=== PATIENT | male | born 1965 | race Caucasian/White ===

== ENCOUNTER 2021-01-16 16:25 | Emergency (ER) | payer MEDICARE, MEDICAID ==
[~2021-01-16] VITALS: Ht 170.2 cm; Wt 61.4 kg
[~2021-01-16 16:25] MED LIST: ASCO-134 PO; LISI-790 PO; PANT40TA54 PO
[2021-01-16 16:40] VITALS: BP 160/103
[2021-01-16] MEDS ORDERED: normal saline 1000ML IV soln IV ONE (16:45)
[2021-01-16 17:11] LABS: BASOPHILS % (AUTO) 0.4 % (0-1); EOSINOPHILS # (AUTO) 0.1 X10'3 (0-0.9); EOSINOPHILS % (AUTO) 1.1 % (0-6); HEMATOCRIT 46.9 % (42.0-52.0); HEMOGLOBIN 15.2 g/dl (14.0-17.9); LYMPHOCYTES # (AUTO) 2.1 X10'3 (1.1-4.8); LYMPHOCYTES % (AUTO) 21.1 % (21-51); MEAN CORPUSCULAR HEMOGLOBIN 23.8 PG (27.0-31.0); MEAN CORPUSCULAR HGB CONC 32.5 g/dL (33.0-36.5); MEAN CORPUSCULAR VOLUME 73.3 FL (78-98); MEAN PLATELET VOLUME 8.5 FL (7.4-10.4); MONOCYTES # (AUTO) 0.5 X10'3 (0-0.9); MONOCYTES % (AUTO) 4.7 % (2-12); NEUTROPHILS # (AUTO) 7.3 X10'3 (1.8-7.7); NEUTROPHILS % (AUTO) 72.7 % (42-75); PLATELET COUNT 367 X10'3 (140-440); RED BLOOD COUNT 6.39 X10'6 (4.70-6.10); RED CELL DISTRIBUTION WIDTH 20.8 % (11.5-14.5); WHITE BLOOD COUNT 10.1 X10'3 (4.5-11.0)
[2021-01-16 17:25] LABS: ALANINE AMINOTRANSFERASE 14 U/L (12-78); ALBUMIN 3.8 G/DL (3.4-5.0); ALBUMIN/GLOBULIN RATIO 0.8 (1.1-1.5); ALKALINE PHOSPHATASE 118 IU/L (46-116); ANION GAP 13 (8-16); ASPARTATE AMINO TRANSFERASE 14 U/L (10-37); BILIRUBIN,TOTAL 1.3 MG/DL (0.1-1.0); BLOOD UREA NITROGEN 19 MG/DL (7-18); BUN/CREATININE RATIO 15.4 (5.4-32.0); CALCIUM 9.2 MG/DL (8.5-10.1); CHLORIDE 100 MMOL/L (99-107); CREATININE 1.23 MG/DL (0.60-1.10); GLUCOSE 112 MG/DL (70-104); POTASSIUM 4.3 MMOL/L (3.5-5.1); SODIUM 137 MMOL/L (135-145); TOTAL CARBON DIOXIDE 24.5 MMOL/L (24-32); TOTAL PROTEIN 8.4 G/DL (6.4-8.2); eGFR 61 ML/MIN
[2021-01-17 00:34] LABS: ANISOCYTOSIS 3+; BURR CELLS FEW; MICROCYTOSIS 1+; PLATELET ESTIMATE NORMAL; TEAR DROP CELLS FEW
[2021-01-18] MEDS ORDERED: ONDA4TAB12 PO (23:08)
[2021-01-18] MEDS ORDERED: PANT40TA54 PO (23:08)
== END 2021-01-17 08:13 | disposition left against medical advice (07) ==
LOC: ER 16:25
DX: R10.32 Left lower quadrant pain (principal); K29.70 Gastritis, unspecified, without bleeding; K40.90 Unilateral inguinal hernia, without obstruction or gangrene, not specified as recurrent; I25.10 Atherosclerotic heart disease of native coronary artery without angina pectoris; Z86.19 Personal history of other infectious and parasitic diseases; Z90.89 Acquired absence of other organs; Z60.2 Problems related to living alone; Z56.0 Unemployment, unspecified; Z79.899 Other long term (current) drug therapy
CPT/HCPCS: 36415; 80053; 83605; 84145; 85008; 85025; 87040; 99283

== ENCOUNTER 2021-01-18 20:42 | Inpatient (IN) | payer MEDICARE, MEDICAID ==
[~2021-01-18] VITALS: Ht 170.2 cm; Wt 61.4 kg
[2021-01-18 22:11] LABS: BASOPHILS # (AUTO) 0.1 X10'3 (0-0.2); BASOPHILS % (AUTO) 0.5 % (0-1); EOSINOPHILS # (AUTO) 0.1 X10'3 (0-0.9); EOSINOPHILS % (AUTO) 0.4 % (0-6); HEMATOCRIT 47.2 % (42.0-52.0); HEMOGLOBIN 15.4 g/dl (14.0-17.9); LYMPHOCYTES # (AUTO) 1.4 X10'3 (1.1-4.8); LYMPHOCYTES % (AUTO) 9.9 % (21-51); MEAN CORPUSCULAR HEMOGLOBIN 23.9 PG (27.0-31.0); MEAN CORPUSCULAR HGB CONC 32.5 g/dL (33.0-36.5); MEAN CORPUSCULAR VOLUME 73.4 FL (78-98); MEAN PLATELET VOLUME 8.7 FL (7.4-10.4); MONOCYTES # (AUTO) 0.5 X10'3 (0-0.9); MONOCYTES % (AUTO) 3.9 % (2-12); NEUTROPHILS # (AUTO) 12.1 X10'3 (1.8-7.7); NEUTROPHILS % (AUTO) 85.3 % (42-75); PLATELET COUNT 424 X10'3 (140-440); RED BLOOD COUNT 6.44 X10'6 (4.70-6.10); WHITE BLOOD COUNT 14.2 X10'3 (4.5-11.0)
[2021-01-18 22:24] LABS: ALANINE AMINOTRANSFERASE 19 U/L (12-78); ALBUMIN 3.8 G/DL (3.4-5.0); ALBUMIN/GLOBULIN RATIO 0.8 (1.1-1.5); ALKALINE PHOSPHATASE 124 IU/L (46-116); ANION GAP 13 (8-16); ASPARTATE AMINO TRANSFERASE 19 U/L (10-37); BILIRUBIN,TOTAL 1.2 MG/DL (0.1-1.0); BLOOD UREA NITROGEN 23 MG/DL (7-18); BUN/CREATININE RATIO 16.9 (5.4-32.0); CALCIUM 9.6 MG/DL (8.5-10.1); CHLORIDE 96 MMOL/L (99-107); CREATININE 1.36 MG/DL (0.60-1.10); GLUCOSE 174 MG/DL (70-104); LIPASE 93 U/L (73-393); POTASSIUM 3.9 MMOL/L (3.5-5.1); SODIUM 139 MMOL/L (135-145); TOTAL CARBON DIOXIDE 29.7 MMOL/L (24-32); TOTAL PROTEIN 8.5 G/DL (6.4-8.2); eGFR 54 ML/MIN
[2021-01-18] MEDS ORDERED: ONDA4TAB12 PO (23:08)
[2021-01-18] MEDS ORDERED: PANT40TA54 PO (23:08)
[2021-01-18] MEDS ORDERED: ondansetron 4mg rapidly disintigrating tab PO ONE (23:10)
[2021-01-18] MEDS ORDERED: aspirin 81mg tab.chew PO ONE (23:25)
[2021-01-18 23:31] LABS: TROPONIN I < 0.04 NG/ML (0.0-0.05)
[2021-01-18] MEDS ORDERED: LIDOcaine 1% (10mg/ml)w/preservative injection 20ml MDV ONE (23:52)
[2021-01-18] MEDS ORDERED: heparin 1,000unit/ml 10ml vial 10 ML ONE (23:52)
[2021-01-18] MEDS ORDERED: fentaNYL/PF 50MCG/1 ML 2ML syringe ONE (23:52)
[2021-01-18] MEDS ORDERED: midazolam 1 mg/ML 2ml injection ONE (23:52)
[2021-01-18] MEDS ORDERED: iohexol 350MG/ML 100ml bottle IV ONE (23:52)
[2021-01-18] MEDS ORDERED: iohexol 350 MG/ML 50ML vial IV ONE (23:52)
[2021-01-18 23:59] LABS: ANISOCYTOSIS 2+; PLATELET ESTIMATE NORMAL; TOTAL CELLS COUNTED 100
[2021-01-19] LABS: LARGE PLATELETS FEW; MICROCYTOSIS 1+; TOXIC GRANULATION 1+; TOXIC VACUOLATION FEW
[2021-01-19] MEDS ORDERED: normal saline 1000ml 1,000 ML IV ONE (00:45)
[2021-01-19] MEDS ORDERED: diphenhydrAMINE 50 mg/ml inj IV STA (01:08)
[2021-01-19] MEDS ORDERED: pantoprazole 40 MG vial IV STA (01:08)
[2021-01-19] MEDS ORDERED: LORazepam 2 mg/ml vial IV PRN (01:10)
[2021-01-19] MEDS ORDERED: ondansetron/PF 4mg/2ml inj IV PRN ×2 (01:10→02:55)
[2021-01-19] MEDS ORDERED: HYDROcodone/acetaminophen 10/325mg tab PO PRN (02:55)
[2021-01-19] MEDS ORDERED: HYDROcodone/acetaminophen 5mg/325mg tablet PO PRN (02:55)
[2021-01-19] MEDS ORDERED: ondansetron 4mg rapidly disintigrating tab PO PRN (02:55)
[2021-01-19] MEDS ORDERED: magnesium hydroxide 30ml (MOM) UD suspension PO PRN (02:55)
[2021-01-19] MEDS ORDERED: acetaminophen 325mg tablet PO PRN ×2 (02:55)
[2021-01-19] MEDS: dextrose 5%-1/2 normal saline 1,000 ML IV SCH ×3 (02:55→23:15)
[2021-01-19] MEDS ORDERED: acetaminophen 650mg rectal suppository RC PRN (02:55)
[2021-01-19] MEDS ORDERED: diphenhydrAMINE 25mg capsule PO PRN (02:55)
[2021-01-19] MEDS ORDERED: bisacodyl 10mg suppository rectal RC PRN (02:55)
[2021-01-19] MEDS ORDERED: diphenhydrAMINE 50 mg/ml inj IV PRN (02:55)
[2021-01-19] MEDS ORDERED: mag hydrox/Alum hydrox/simeth 30ml oral suspension PO PRN (02:55)
[2021-01-19] MEDS ORDERED: morphine 2 MG/ML inj. syringe IV PRN ×2 (02:55)
[2021-01-19 03:23] LABS: HEMOGLOBIN A1C 6.3 % (4.5-6.2)
[2021-01-19 03:28] LABS: CREATINE KINASE 31 U/L (39-308); ETHANOL < 0.010 GM/DL (0.0-0.010); MAGNESIUM 2.8 MG/DL (1.5-2.4); PHOSPHORUS 5.1 MG/DL (2.3-4.5)
[2021-01-19] MEDS: aspirin 81mg, enteric-coated 1 TAB TABLET.DR PO SCH (08:41)
[2021-01-19] MEDS: atorvastatin 20mg tablet PO SCH (08:41)
[2021-01-19] MEDS: docusate sod 100mg capsule PO SCH ×2 (08:41→20:18)
[2021-01-19] MEDS: pantoprazole 40 MG vial IV SCH (08:41)
[2021-01-19] MEDS: carVEDilol 3.125mg tablet PO SCH ×2 (08:41→20:18)
[2021-01-19] MEDS: LORazepam 1 MG tablet PO SCH ×2 (08:41→16:00)
[2021-01-19] MEDS: nicotine 21mg patch - 24 hr TD SCH (08:43)
[2021-01-19] MEDS: heparin, porcine 5000 units/ml vial SQ SCH ×2 (08:43→20:19)
[2021-01-19] MEDS ORDERED: VITC500T PO (12:11)
[2021-01-19] MEDS ORDERED: LISI-790 PO (12:12)
[2021-01-19] MEDS ORDERED: ONDA4TAB12 PO (12:13)
[2021-01-19] MEDS ORDERED: PANT40TA54 PO (12:14)
[2021-01-19 12:50] LABS: D-DIMER 1.41 MG/L FEU (0-0.50); PARTIAL THROMBOPLASTIN TIME 28 SECONDS (22-32)
--- NOTE | 2021-01-19 12:52 | NUR ---
paged Dr. Lopez request for diet.
--- NOTE | 2021-01-19 13:19 | NUR ---
patient lethargic but arousable,opens eyes to voice,was able to collect urine via clean catch,denies discomfort,cardiac exercise specialist shows sinus rhythm 80bpm, BG checked 119mg/dl.We will monitor.
[2021-01-19] MEDS ORDERED: NO HOME MEDS (14:02)
[2021-01-19 14:05] LABS: CLARITY,URINE SLIGHTLY CLOUDY (Clear); COLOR,URINE YELLOW (Yellow); GLUCOSE, URINE NEGATIVE (Neg); KETONES,URINE NEGATIVE (Neg); LEUKOCYTE ESTERASE ,URINE NEGATIVE (Neg); NITRITES, URINE NEGATIVE (Neg); OCCULT BLOOD,URINE NEGATIVE (Neg); PH,URINE 6.5 (4.8-8.0); PROTEIN,URINE NEGATIVE (Neg); UA COLLECTION TYPE CLN CATCH MIDSTREAM; UROBILINOGEN,URINE 0.2 E.U/dL (0.2-1.0)
[2021-01-19 14:12] LABS: URINE AMPHETAMINE SCREEN POSITIVE (Neg); URINE BARBITUATE SCREEN NEGATIVE (Neg); URINE BENZODIAZEPINES SCREEN NEGATIVE (Neg); URINE CANNABINOID SCREEN POSITIVE (Neg); URINE COCAINE SCREEN NEGATIVE (Neg); URINE METHADONE SCREEN NEGATIVE (Neg); URINE OPIATE SCREEN POSITIVE (Neg); URINE PHENCYCLIDINE SCREEN NEGATIVE (Neg)
[2021-01-19 14:22] LABS: BACTERIA,URINE NONE SEEN /HPF (Neg); MUCUS STRANDS FEW /LPF (Neg); RBC,URINE 0-2 /HPF (0-2); SQUAMOUS EPITHELIAL CELL,UR NONE SEEN /LPF (FEW); WBC,URINE 0-4 /HPF (0-4)
[2021-01-19 14:23] LABS: HYALINE CASTS 0-3 /LPF (NEGATIVE)
--- NOTE | 2021-01-19 15:00 | NUR ---
Dr. Sams here to see patient. No new order.
--- NOTE | 2021-01-19 15:00 | NUR ---
Dr. Sams made aware that patient has been lethargic but arousable,no call from Dr. Lopez.
--- NOTE | 2021-01-19 15:00 | NUR ---
visitor at bedside,mentioned that the patient was able to talk to hospitalist Dr. Lopez when he was here.
--- NOTE | 2021-01-19 16:23 | NUR ---
HELD ATIVAN DOSE AT THIS TIME,PATIENT ASLEEP AND NOT NEEDING ATIVAN, HAS BEEN SLEEPING ALMOST ALL SHIFT.VISITOR AT BEDSIDE.
--- NOTE | 2021-01-19 17:48 | NUR ---
Spoke to Dr. Lopez made aware that patient has been lethargic today, arousable to verbal stimuli and mild sternum rub.made aware that 1600 ativan was dc'd.ordered to dc ativan.
[2021-01-19] MEDS ORDERED: temazepam 15mg capsule PO PRN (21:00)
--- NOTE | 2021-01-20 04:50 | NUR ---
REMOVED TELE MONITOR PER DR ORDER.
--- NOTE | 2021-01-20 05:20 | NUR ---
HR 63, SPO2 97 RA, BP 115/80, MT 16, TEMP 98.0, PAIN 0. NO SIGN OF DISTRESS OR DISCOMFORT NOTED.
--- NOTE | 2021-01-20 05:38 | NUR ---
PATIENT RECEIVED . VS STABLE. PATIENT ON RA. O2 SAT 95% . PATIENT EDUCATED ABOUT CALL LIGHT, ROOM AND SAFETY MEASURES. PATIENT VERBALIZES UNDERSTANDING. ALL SAFETY MEASURES IN PLACE. WILL CONTINUE MONITOR.
[2021-01-20 06:00] VITALS: BP 119/77
--- NOTE | 2021-01-20 06:26 | NUR ---
PATIENT STABLE. REPORT GIVEN TO DIANNA PIERCE.
--- NOTE | 2021-01-20 06:36 | NUR ---
Patient in room PCU 3013. I have received report from Lilly BUSTAMANTE and had the opportunity to ask questions and assume patient care.
[2021-01-20] MEDS: nicotine 21mg patch - 24 hr TD SCH (08:00)
[2021-01-20 08:30] LABS: BASOPHILS # (AUTO) 0.1 X10'3 (0-0.2); BASOPHILS % (AUTO) 0.8 % (0-1); EOSINOPHILS # (AUTO) 0.1 X10'3 (0-0.9); EOSINOPHILS % (AUTO) 1.3 % (0-6); HEMATOCRIT 39.2 % (42.0-52.0); HEMOGLOBIN 12.5 g/dl (14.0-17.9); LYMPHOCYTES # (AUTO) 2.2 X10'3 (1.1-4.8); LYMPHOCYTES % (AUTO) 23.2 % (21-51); MEAN CORPUSCULAR HGB CONC 31.9 g/dL (33.0-36.5); MEAN CORPUSCULAR VOLUME 75.2 FL (78-98); MEAN PLATELET VOLUME 9.3 FL (7.4-10.4); MONOCYTES # (AUTO) 0.5 X10'3 (0-0.9); MONOCYTES % (AUTO) 5.6 % (2-12); NEUTROPHILS # (AUTO) 6.6 X10'3 (1.8-7.7); NEUTROPHILS % (AUTO) 69.1 % (42-75); PLATELET COUNT 294 X10'3 (140-440); RED BLOOD COUNT 5.21 X10'6 (4.70-6.10); RED CELL DISTRIBUTION WIDTH 20.5 % (11.5-14.5); WHITE BLOOD COUNT 9.6 X10'3 (4.5-11.0)
[2021-01-20 08:49] LABS: ALANINE AMINOTRANSFERASE 16 U/L (12-78); ALBUMIN 2.9 G/DL (3.4-5.0); ALBUMIN/GLOBULIN RATIO 0.8 (1.1-1.5); ALKALINE PHOSPHATASE 98 IU/L (46-116); ANION GAP 7 (8-16); ASPARTATE AMINO TRANSFERASE 17 U/L (10-37); BILIRUBIN,TOTAL 0.9 MG/DL (0.1-1.0); BLOOD UREA NITROGEN 29 MG/DL (7-18); CALCIUM 8.6 MG/DL (8.5-10.1); CHLORIDE 101 MMOL/L (99-107); CHOL/HDL RATIO 2.9 (0.00-4.99); CHOLESTEROL 129 MG/DL (0-200); CREATININE 1.26 MG/DL (0.60-1.10); GLUCOSE 85 MG/DL (70-104); HDL CHOLESTEROL 44 MG/DL (35-60); LDL CHOLESTEROL 72 MG/DL (50-100); POTASSIUM 3.8 MMOL/L (3.5-5.1); SODIUM 138 MMOL/L (135-145); TOTAL CARBON DIOXIDE 30.2 MMOL/L (24-32); TOTAL PROTEIN 6.6 G/DL (6.4-8.2); TRIGLYCERIDES 77 MG/DL (20-135); eGFR 59 ML/MIN
[2021-01-20] MEDS: dextrose 5%-1/2 normal saline 1,000 ML IV SCH (08:55)
[2021-01-20] MEDS: pantoprazole 40 MG vial IV SCH (09:06)
[2021-01-20] MEDS: LORazepam 1 MG tablet PO SCH ×2 (09:10)
[2021-01-20] MEDS: docusate sod 100mg capsule PO SCH (09:10)
[2021-01-20] MEDS: carVEDilol 3.125mg tablet PO SCH (09:11)
[2021-01-20] MEDS: aspirin 81mg, enteric-coated 1 TAB TABLET.DR PO SCH (09:11)
[2021-01-20] MEDS: atorvastatin 20mg tablet PO SCH (09:11)
[2021-01-20] MEDS: heparin, porcine 5000 units/ml vial SQ SCH (09:12)
[2021-01-20] MEDS ORDERED: COR3.125T PO (10:38)
[2021-01-20] MEDS ORDERED: PANT-47 PO (10:38)
[2021-01-20] MEDS ORDERED: ASPI-1071 PO (10:38)
[2021-01-20] MEDS ORDERED: ATOR20TA66 PO (10:38)
[2021-01-20] MEDS ORDERED: NICO-687 TD (10:38)
[2021-01-20 11:11] LABS: HYPOCHROMASIA 1+; PLATELET ESTIMATE NORMAL
[2021-01-20 11:12] LABS: ANISOCYTOSIS 3+; MICROCYTOSIS 1+
--- NOTE | 2021-01-20 12:47 | NUR ---
Patient stable for discharge per Dr. Lopez. DC'd tele and DC'd right and left PIV's with cannulas intact. patient verbalized understanding of discharge instruction, the importance of follow up care, new medication regimen and stopping methamphetamine use. Patient and belongings were escorted to the lobby for transport home by family/friend.
== END 2021-01-20 12:23 | disposition home or self-care (01) | DRG 917 ==
LOC: ER 20:43 → ED HOLD 01-19 02:57 → PCU 3S 01-20 05:05
PROVIDERS: ADMIT Family Medicine; ATTEND Family Medicine
DX: T43.621A Poisoning by amphetamines, accidental (unintentional), initial encounter (principal); I50.23 Acute on chronic systolic (congestive) heart failure; I21.9 Acute myocardial infarction, unspecified; I16.1 Hypertensive emergency; F19.20 Other psychoactive substance dependence, uncomplicated; K22.10 Ulcer of esophagus without bleeding; N17.9 Acute kidney failure, unspecified; I42.7 Cardiomyopathy due to drug and external agent; I11.0 Hypertensive heart disease with heart failure; B18.2 Chronic viral hepatitis C; K40.90 Unilateral inguinal hernia, without obstruction or gangrene, not specified as recurrent; Z20.822 Contact with and (suspected) exposure to COVID-19; F15.129 Other stimulant abuse with intoxication, unspecified; F17.210 Nicotine dependence, cigarettes, uncomplicated; K21.9 Gastro-esophageal reflux disease without esophagitis; F41.1 Generalized anxiety disorder; I25.10 Atherosclerotic heart disease of native coronary artery without angina pectoris; I25.2 Old myocardial infarction; Z87.11 Personal history of peptic ulcer disease; Z90.49 Acquired absence of other specified parts of digestive tract; Z79.82 Long term (current) use of aspirin; Z56.0 Unemployment, unspecified; Z79.899 Other long term (current) drug therapy; Z71.51 Drug abuse counseling and surveillance of drug abuser; Z71.6 Tobacco abuse counseling; Y92.89 Other specified places as the place of occurrence of the external cause
CPT/HCPCS: 36415; 74176; 80053; 80061; 80305; 80320; 81001; 82550; 82948; 83036; 83605; 83690; 83735; 83880; 84100; 84145; 84484; 85007; 85008; 85025; 85379; 85610; 85730; 87040; 87081; 87635; 93005; 99283; 99291; C9113; C9803; G0378; J1200; J1644; J2001; J2250; J2405; J3010; J7030; Q9967

== ENCOUNTER 2021-05-05 16:50 | Emergency (ER) | payer MEDICARE, MEDICAID ==
[~2021-05-05] VITALS: Ht 170.2 cm; Wt 59.1 kg
[~2021-05-05 16:50] MED LIST changes: -ASCO-134 PO; +ASPI-1071 PO; +ATOR20TA66 PO; +COR3.125T PO; -LISI-790 PO; +NICO-687 TD; +PANT-47 PO; -PANT40TA54 PO
[2021-05-05 17:18] VITALS: BP 164/113
[2021-05-05 18:12] LABS: BASOPHILS # (AUTO) 0.1 X10'3 (0-0.2); BASOPHILS % (AUTO) 0.5 % (0-1); EOSINOPHILS % (AUTO) 0.2 % (0-6); HEMATOCRIT 42.3 % (42.0-52.0); HEMOGLOBIN 13.5 g/dl (14.0-17.9); LYMPHOCYTES # (AUTO) 1.8 X10'3 (1.1-4.8); LYMPHOCYTES % (AUTO) 11.8 % (21-51); MEAN CORPUSCULAR HEMOGLOBIN 22.1 PG (27.0-31.0); MEAN CORPUSCULAR VOLUME 69.2 FL (78-98); MONOCYTES # (AUTO) 0.7 X10'3 (0-0.9); MONOCYTES % (AUTO) 4.6 % (2-12); NEUTROPHILS # (AUTO) 12.3 X10'3 (1.8-7.7); NEUTROPHILS % (AUTO) 82.9 % (42-75); PLATELET COUNT 349 X10'3 (140-440); RED BLOOD COUNT 6.12 X10'6 (4.70-6.10); RED CELL DISTRIBUTION WIDTH 18.8 % (11.5-14.5); WHITE BLOOD COUNT 14.9 X10'3 (4.5-11.0)
[2021-05-05 18:25] LABS: ALANINE AMINOTRANSFERASE 15 U/L (12-78); ALBUMIN 3.6 G/DL (3.4-5.0); ALBUMIN/GLOBULIN RATIO 0.8 (1.1-1.5); ALKALINE PHOSPHATASE 116 IU/L (46-116); ANION GAP 9 (8-16); ASPARTATE AMINO TRANSFERASE 13 U/L (10-37); BILIRUBIN,TOTAL 0.5 MG/DL (0.1-1.0); BLOOD UREA NITROGEN 23 MG/DL (7-18); BUN/CREATININE RATIO 22.8 (5.4-32.0); CALCIUM 9.2 MG/DL (8.5-10.1); CHLORIDE 100 MMOL/L (99-107); CREATININE 1.01 MG/DL (0.60-1.10); GLUCOSE 132 MG/DL (70-104); POTASSIUM 4.3 MMOL/L (3.5-5.1); SODIUM 134 MMOL/L (135-145); TOTAL CARBON DIOXIDE 25.2 MMOL/L (24-32); TOTAL PROTEIN 7.9 G/DL (6.4-8.2); eGFR 76 ML/MIN
[2021-05-05 18:37] LABS: ANISOCYTOSIS 2+; MICROCYTOSIS 2+; PLATELET ESTIMATE NORMAL
== END 2021-05-05 23:20 | disposition left against medical advice (07) ==
LOC: ER 16:52
DX: F11.20 Opioid dependence, uncomplicated (principal); Z20.822 Contact with and (suspected) exposure to COVID-19
CPT/HCPCS: 36415; 71045; 80053; 83880; 84484; 85008; 85025; 93005

== ENCOUNTER 2021-05-11 09:37 | Inpatient (IN) | payer MEDICARE, MEDICAID ==
[~2021-05-11] VITALS: Ht 170.2 cm; Wt 58.8 kg
[2021-05-11] MEDS ORDERED: pantoprazole 40MG/D5 100ML BAG 100 ML IV STA (09:41)
[2021-05-11] MEDS ORDERED: pantoprazole 40MG/NS 100ML BAG 100 ML IV ONE (09:45)
[2021-05-11] MEDS ORDERED: ondansetron/PF 4mg/2ml inj IV ONE (09:45)
[2021-05-11] MEDS ORDERED: normal saline 1000ML IV soln IVB ONE (09:45)
[2021-05-11 10:16] LABS: BASOPHILS # (AUTO) 0.1 X10'3 (0-0.2); BASOPHILS % (AUTO) 0.5 % (0-1); EOSINOPHILS % (AUTO) 0.3 % (0-6); HEMATOCRIT 39.9 % (42.0-52.0); HEMOGLOBIN 12.8 g/dl (14.0-17.9); LYMPHOCYTES # (AUTO) 1.9 X10'3 (1.1-4.8); LYMPHOCYTES % (AUTO) 13.2 % (21-51); MEAN CORPUSCULAR HEMOGLOBIN 22.4 PG (27.0-31.0); MEAN CORPUSCULAR VOLUME 69.8 FL (78-98); MEAN PLATELET VOLUME 8.5 FL (7.4-10.4); MONOCYTES # (AUTO) 0.8 X10'3 (0-0.9); MONOCYTES % (AUTO) 5.6 % (2-12); NEUTROPHILS # (AUTO) 11.3 X10'3 (1.8-7.7); NEUTROPHILS % (AUTO) 80.4 % (42-75); PLATELET COUNT 431 X10'3 (140-440); RED BLOOD COUNT 5.72 X10'6 (4.70-6.10); RED CELL DISTRIBUTION WIDTH 19.9 % (11.5-14.5); WHITE BLOOD COUNT 14.1 X10'3 (4.5-11.0)
[2021-05-11 10:29] LABS: APTT 22 SECONDS (22-32)
[2021-05-11 10:31] LABS: ALANINE AMINOTRANSFERASE 13 U/L (12-78); ALBUMIN/GLOBULIN RATIO 0.7 (1.1-1.5); ALKALINE PHOSPHATASE 90 IU/L (46-116); ANION GAP 7 (8-16); ASPARTATE AMINO TRANSFERASE 12 U/L (10-37); BILIRUBIN,TOTAL 0.6 MG/DL (0.1-1.0); BLOOD UREA NITROGEN 26 MG/DL (7-18); BUN/CREATININE RATIO 23.9 (5.4-32.0); CALCIUM 9.2 MG/DL (8.5-10.1); CHLORIDE 98 MMOL/L (99-107); CREATININE 1.09 MG/DL (0.60-1.10); GLUCOSE 130 MG/DL (70-104); POTASSIUM 3.6 MMOL/L (3.5-5.1); SODIUM 134 MMOL/L (135-145); TOTAL CARBON DIOXIDE 29.3 MMOL/L (24-32); TOTAL PROTEIN 7.5 G/DL (6.4-8.2); eGFR 70 ML/MIN
[2021-05-11] MEDS ORDERED: iohexol 300mg/ml 100ml inj. ONE (10:49)
[2021-05-11] MEDS ORDERED: LIDOcaine Viscous 15ml cup MM PRN (13:25)
[2021-05-11] MEDS ORDERED: ondansetron/PF 4mg/2ml inj IV PRN (14:00)
[2021-05-11] MEDS ORDERED: magnesium 2GM in 50ml NS 50 ML IV PRN (14:00)
[2021-05-11] MEDS ORDERED: potassium CL 10mEq/100ml bag 100 ML IV PRN (14:00)
[2021-05-11] MEDS ORDERED: potassium Cl 20 mEq SR tablet PO PRN ×2 (14:00)
[2021-05-11] MEDS ORDERED: magnesium Cl slow-release 64mg tablet PO PRN (14:00)
[2021-05-11] MEDS ORDERED: morphine 2 MG/ML inj. syringe IV PRN (14:00)
[2021-05-11] MEDS ORDERED: magnesium 4gm in 100ml NS 100 ML IV PRN (14:00)
[2021-05-11] MEDS ORDERED: normal saline 1000ml 1,000 ML IV SCH (14:00)
[2021-05-11 14:24] LABS: MAGNESIUM 2.2 MG/DL (1.5-2.4)
[2021-05-11] MEDS ORDERED: diazepam inj 5 MG/ML inj. IV ONE (14:30)
--- NOTE | 2021-05-11 15:05 | NUR ---
attimpted to place ng tube x3 but was unable to place pa notifed will let surgical floor try when moved to floor
[2021-05-11] MEDS ORDERED: pantoprazole 40MG/NS 100ML BAG 100 ML IV SCH (16:00)
[2021-05-11] MEDS ORDERED: PERFLUTREN PROTEIN-A MICROSPHR (Optison) 0.22 MG/ML 3ML VIAL IV ONE (16:35)
--- NOTE | 2021-05-11 16:38 | NUR ---
16 Fr NG tube placed in L nare. Brown "soft serve" consistency output immediately. Pt did not tolerate well, emesis throughout placement, and consistently asking to take it out. Educated pt and pt visitor of need to have NG tube. Will encourage compliance
[2021-05-11 16:56] VITALS: BP 147/96
--- NOTE | 2021-05-11 18:20 | NUR ---
Problems reprioritized. Patient report given, questions answered & plan of care reviewed with Adri BUSTAMANTE.
[2021-05-11 19:00] VITALS: BP 139/90
[2021-05-11] MEDS ORDERED: K and/or MAG REPLACEMENT MC SCH (20:00)
[2021-05-11] MEDS ORDERED: hydrALAZINE 20mg/ml inj. IV SCH (20:00)
[2021-05-11] MEDS ORDERED: temazepam 15mg capsule PO PRN (20:40)
--- NOTE | 2021-05-12 04:33 | NUR ---
05/11/21 late entry pt requested a sleeping pill. informed dr pollock of pts request. informed dr pollock of pts admitting diagnosis and that pt is npo and has a ngt . while dr pollock was giving orders pt pulled out ngt .dr pollock was notified
--- NOTE | 2021-05-12 04:39 | NUR ---
late entry 05/11/21 when i went to pts room , pt stated he was leaving and requested that iv be taken out. iv was removed by mike briseno. pt signed ama paperwork. informed pt that if he leaves he could possibly leave and have problems and . pt stated he was leaving. dr pollock was notified informed dr pollock pt signed ama paperwork and that pt was informed that he was leaving against medical advice.
== END 2021-05-11 20:57 | disposition left against medical advice (07) | DRG 381 ==
LOC: ER 09:37 → ED HOLD 14:02 → EDBEDREQ 14:35 → SUR 3N 15:55
PROVIDERS: ADMIT Internal Medicine; ATTEND Internal Medicine
PROC: BW211ZZ Computerized Tomography (CT Scan) of Abdomen and Pelvis using Low Osmolar Contrast (ICD-10-PCS; principal; 2021-05-11)
DX: K25.5 Chronic or unspecified gastric ulcer with perforation (principal); K31.1 Adult hypertrophic pyloric stenosis; M87.88 Other osteonecrosis, other site; K21.00 Gastro-esophageal reflux disease with esophagitis, without bleeding; E78.5 Hyperlipidemia, unspecified; Z53.29 Procedure and treatment not carried out because of patient's decision for other reasons; I11.9 Hypertensive heart disease without heart failure; Z20.822 Contact with and (suspected) exposure to COVID-19; B19.20 Unspecified viral hepatitis C without hepatic coma; F17.210 Nicotine dependence, cigarettes, uncomplicated; Z87.11 Personal history of peptic ulcer disease; Z90.49 Acquired absence of other specified parts of digestive tract; Z79.899 Other long term (current) drug therapy; Z79.82 Long term (current) use of aspirin; Z56.0 Unemployment, unspecified
CPT/HCPCS: 36415; 74177; 80053; 83605; 83735; 84145; 85025; 85610; 85730; 87081; 87635; 96374; 96375; 99285; C9113; G0378; J2270; J2405; J3360; J7030; Q9967

== ENCOUNTER 2021-09-09 12:05 | Emergency (ER) | payer MEDICARE, MEDICAID ==
[~2021-09-09 12:05] MED LIST changes: -NICO-687 TD
== END 2021-09-09 15:05 | disposition left against medical advice (07) ==
LOC: ER 12:06
DX: R10.9 Unspecified abdominal pain (principal); Z53.21 Procedure and treatment not carried out due to patient leaving prior to being seen by health care provider

== ENCOUNTER 2021-09-18 10:23 | Emergency (ER) | payer MEDICARE, MEDICAID ==
[~2021-09-18] VITALS: Ht 170.2 cm; Wt 61.4 kg
[2021-09-18 10:42] VITALS: BP 162/99
[2021-09-18 11:14] LABS: BASOPHILS % (AUTO) 0.5 % (0-1); EOSINOPHILS % (AUTO) 0.4 % (0-6); HEMATOCRIT 36.9 % (42.0-52.0); HEMOGLOBIN 11.5 g/dl (14.0-17.9); LYMPHOCYTES # (AUTO) 2.3 X10'3 (1.1-4.8); LYMPHOCYTES % (AUTO) 21.6 % (21-51); MEAN CORPUSCULAR HEMOGLOBIN 20.5 PG (27.0-31.0); MEAN CORPUSCULAR HGB CONC 31.1 g/dL (33.0-36.5); MEAN CORPUSCULAR VOLUME 65.8 FL (78-98); MEAN PLATELET VOLUME 9.1 FL (7.4-10.4); MONOCYTES # (AUTO) 0.7 X10'3 (0-0.9); NEUTROPHILS # (AUTO) 7.8 X10'3 (1.8-7.7); NEUTROPHILS % (AUTO) 71.5 % (42-75); PLATELET COUNT 356 X10'3 (140-440); WHITE BLOOD COUNT 10.8 X10'3 (4.5-11.0)
[2021-09-18 11:31] LABS: ALANINE AMINOTRANSFERASE 14 U/L (12-78); ALBUMIN 3.5 G/DL (3.4-5.0); ALBUMIN/GLOBULIN RATIO 0.9 (1.1-1.5); ALKALINE PHOSPHATASE 108 IU/L (46-116); ANION GAP 11 (8-16); ASPARTATE AMINO TRANSFERASE 14 U/L (10-37); BILIRUBIN,TOTAL 0.6 MG/DL (0.1-1.0); BLOOD UREA NITROGEN 17 MG/DL (7-18); BUN/CREATININE RATIO 15.2 (5.4-32.0); CALCIUM 8.9 MG/DL (8.5-10.1); CHLORIDE 98 MMOL/L (99-107); CREATININE 1.12 MG/DL (0.60-1.10); GLUCOSE 119 MG/DL (70-104); SODIUM 135 MMOL/L (135-145); TOTAL CARBON DIOXIDE 25.9 MMOL/L (24-32); TOTAL PROTEIN 7.6 G/DL (6.4-8.2); eGFR 68 ML/MIN
[2021-09-18 11:43] LABS: PLATELET ESTIMATE NORMAL
[2021-09-18 11:44] LABS: ANISOCYTOSIS 2+; HYPOCHROMASIA 1+; MICROCYTOSIS 2+
== END 2021-09-18 14:07 | disposition left against medical advice (07) ==
LOC: ER 10:23
DX: K46.9 Unspecified abdominal hernia without obstruction or gangrene (principal); Z53.21 Procedure and treatment not carried out due to patient leaving prior to being seen by health care provider
CPT/HCPCS: 71045; 80053; 83880; 84484; 85008; 85025; 93005

== ENCOUNTER 2021-10-23 20:37 | Emergency (ER) | payer MEDICARE, MEDICAID ==
[~2021-10-23] VITALS: Ht 170.2 cm; Wt 63.6 kg
[2021-10-23 20:43] VITALS: BP 173/101
== END 2021-10-24 00:28 | disposition left against medical advice (07) ==
LOC: ER 20:38
DX: R10.30 Lower abdominal pain, unspecified (principal); Z53.21 Procedure and treatment not carried out due to patient leaving prior to being seen by health care provider

== ENCOUNTER 2021-11-04 17:30 | Emergency (ER) | payer BC, MEDICAID ==
[~2021-11-04] VITALS: Ht 170.2 cm; Wt 63.6 kg
[2021-11-04 17:33] VITALS: BP 130/98
[2021-11-04 18:31] LABS: BASOPHILS # (AUTO) 0.1 X10'3 (0-0.2); BASOPHILS % (AUTO) 0.4 % (0-1); EOSINOPHILS # (AUTO) 0.1 X10'3 (0-0.9); EOSINOPHILS % (AUTO) 0.4 % (0-6); HEMATOCRIT 36.2 % (42.0-52.0); HEMOGLOBIN 11.2 g/dl (14.0-17.9); LYMPHOCYTES # (AUTO) 2.1 X10'3 (1.1-4.8); LYMPHOCYTES % (AUTO) 14.9 % (21-51); MEAN CORPUSCULAR HEMOGLOBIN 20.7 PG (27.0-31.0); MEAN CORPUSCULAR HGB CONC 30.9 g/dL (33.0-36.5); MEAN CORPUSCULAR VOLUME 67.2 FL (78-98); MEAN PLATELET VOLUME 8.5 FL (7.4-10.4); MONOCYTES # (AUTO) 0.7 X10'3 (0-0.9); MONOCYTES % (AUTO) 4.7 % (2-12); NEUTROPHILS # (AUTO) 11.1 X10'3 (1.8-7.7); NEUTROPHILS % (AUTO) 79.6 % (42-75); PLATELET COUNT 434 X10'3 (140-440); RED BLOOD COUNT 5.39 X10'6 (4.70-6.10); RED CELL DISTRIBUTION WIDTH 19.6 % (11.5-14.5)
[2021-11-04 18:49] LABS: ALANINE AMINOTRANSFERASE 11 U/L (12-78); ALBUMIN 3.1 G/DL (3.4-5.0); ALBUMIN/GLOBULIN RATIO 0.6 (1.1-1.5); ALKALINE PHOSPHATASE 95 IU/L (46-116); ANION GAP 13 (8-16); ASPARTATE AMINO TRANSFERASE 14 U/L (10-37); BILIRUBIN,TOTAL 0.7 MG/DL (0.1-1.0); BLOOD UREA NITROGEN 23 MG/DL (7-18); BUN/CREATININE RATIO 23.2 (5.4-32.0); CHLORIDE 95 MMOL/L (99-107); CREATININE 0.99 MG/DL (0.60-1.10); GLUCOSE 111 MG/DL (70-104); LIPASE 84 U/L (73-393); POTASSIUM 4.1 MMOL/L (3.5-5.1); SODIUM 132 MMOL/L (135-145); TOTAL CARBON DIOXIDE 23.6 MMOL/L (24-32); TOTAL PROTEIN 7.9 G/DL (6.4-8.2); eGFR 78 ML/MIN
[2021-11-04 19:09] LABS: ANISOCYTOSIS 2+; MICROCYTOSIS 2+; PLATELET ESTIMATE NORMAL
[2021-11-04 19:10] LABS: HYPOCHROMASIA 1+; LARGE PLATELETS FEW
== END 2021-11-04 20:09 | disposition left against medical advice (07) ==
LOC: ER 17:31
DX: R11.2 Nausea with vomiting, unspecified (principal); Z53.21 Procedure and treatment not carried out due to patient leaving prior to being seen by health care provider
CPT/HCPCS: 36415; 80053; 83690; 85008; 85025